=== PATIENT | female | born 2000 | race Caucasian/White ===

== ENCOUNTER 2024-08-11 21:00 | Outpatient (CLI) | payer OTHER, MEDICAID, SELFPAY ==
[2024-08-11 21:34] VITALS: BMI 38.8
[2024-08-11 22:01] LABS: Color, Urine Yellow (Yellow); Glucose, Dipstick Normal (Normal); Ketone-Dipstick Negative (Negative); Leukocyte Esterase-Dipstick 500 /ul (Negative); Nitrite-Dipstick Negative (Negative); Occult Blood-Urine 10 /ul (Negative); Protein-Dipstick 15 mg/dl (Negative); Specific Gravity, Urine 1.015 (1.002-1.030); Urine Bilirubin Dipstick Negative (Negative); Urine Clarity Sl. Cloudy (Clear); Urine Urobilinogen 1 mg/dl (Normal); Urine pH 6.5 (5.0 - 8.0)
[2024-08-11 22:18] LABS: ROM Internal Control Test YES-OK TO RESULT pt. (Internal QC); ROM Patient Test Negative (Negative)
[2024-08-11 22:19] LABS: Record Kit Lot#, ROM+ K3294
--- NOTE | 2024-08-13 08:03 | OB.TRI.NOTE ---
HPI - General General Date of Admission: 08/11/24 Date of Service: 08/11/24 Chief Complaint: vaginal discharge HPI Narrative SIRIA GRECO, is a 23 F who presents c/o possible srom, vaginal discharge. PFSH PFSH Home Medications ?Medication ?Instructions ?Recorded ?Last Taken ?Type aspirin 81 mg tablet,delayed 81 mg PO DAILY 08/11/24 08/10/24 History release ferrous sulfate 325 mg (65 mg 325 mg PO DAILY 08/11/24 Unknown History iron) tablet vit no.95-ferrous 1 tab PO DAILY 08/11/24 08/10/24 History fumarate 28 mg-folic acid 800 mcg tablet () Allergy/AdvReac Type Severity Reaction Status Date / Time No Known Allergies Allergy Verified 08/11/24 21:35 NST FHR Rate Baby A Baseline: 120 Variability:: Moderate Accelerations:: 15 x 15 Decelerations:: None NST Reactive:: Yes Uterine Activity:: irreg ctxs Assessment & Plan (1) Maternal obesity syndrome in third trimester: (2) High-risk in third trimester: (3) BMI 38.0-38.9,adult: (4) Vaginal discharge during in third trimester: PLAN: no evidence of SROM or PTL. F/u in office as scheduled or return prn (5) 36 weeks gestation of :
== END 2024-08-11 23:00 | disposition home or self-care (01) ==
LOC: WPOUT 21:08 → WP 21:08
PROVIDERS: Referring Provider Obstetrics & Gynecology; Visit Provider Obstetrics & Gynecology
DX: O99.891 Other specified diseases and conditions complicating pregnancy (principal); N89.8 Other specified noninflammatory disorders of vagina; Z3A.36 36 weeks gestation of pregnancy; O26.03 Excessive weight gain in pregnancy, third trimester
CPT/HCPCS: 59025; 59050; 81002; 84112; 87081; 87086; 87088; 87653; 99221; G0378

== ENCOUNTER 2024-09-04 05:20 | Inpatient (IN) | payer OTHER, MEDICAID, SELFPAY ==
[2024-09-04] VITALS (65 sets, daily range): BP systolic 86–135; BP diastolic 47–83; PULSE 74–140; RESP 14–16; TEMP 36.1–36.7; O2SAT 81–100; BMI 39.4
[2024-09-04 05:16] LABS: ROM Internal Control Test YES-OK TO RESULT pt. (Internal QC)
[2024-09-04 05:17] LABS: ROM Patient Test POSITIVE (Negative); Record Kit Lot#, ROM+ K3358
[2024-09-04] MEDS: Lactated Ringers 1,000 ML 50 ML IV (05:40)
[2024-09-04 05:59] LABS: Absolute Neutrophil Count 7.2 X10^3/uL (2.0-7.7); Basophil# 0.03 X10^3/uL; Basophil% 0.3 % (0-1); Eosinophil# 0.07 X10^3/uL; Eosinophils% 0.7 % (0-5); Hematocrit 30.7 % (37-47); Hemoglobin 10.2 g/dL (12.0-15.0); Lymphocyte % 19.8 % (19-41); Mean Corp Hgb Conc 33.2 g/dL (32-36); Mean Corpuscular Hgb 26.4 pg (27.0-32.0); Mean Corpuscular Volume 79.3 fL (81-99); Mean Platelet Vol. 9.8 fl (6.2-12.0); Monocyte# 0.69 X10^3/uL; Monocyte% 6.8 % (0-10); NRBC Flagged by Analyzer 0 % (0-5); Neutrophil # 7.22 X10^3/uL (2.7-7.7); Neutrophil % 71.7 % (47-70); Platelet Count 192 K/mm3 (150-450); RBC Distribution Width CV 13.6 % (11.6-14.6); RBC Distribution Width SD 38.9 fl (35.1-43.9); Red Blood Count 3.87 M/mm3 (4.2-5.4); White Blood Count 10.1 K/mm3 (4.4-11.0)
--- NOTE | 2024-09-04 06:14 | PCM.HP.OB ---
HPI - General General Date of Admission: 09/04/24 HPI Narrative SIRIA GRECO, is a 23 F who presents with spontanous rupture of membranes for clear fluid. Maternal Data Information OSCAR Calculator Estimated Delivery Date Method Current WG Current Estimate 09/08/24 Manual 39w 3d PFSH [facility] Medical History (Updated 09/04/24 @ 06:16 by Kayley Bansal CNM) Anxiety Asthma Home Medications ?Medication ?Instructions ?Recorded ?Last Taken ?Type aspirin 81 mg tablet,delayed 81 mg PO DAILY 08/11/24 09/03/24 History release ferrous sulfate 325 mg (65 mg 325 mg PO DAILY 08/11/24 09/03/24 History iron) tablet vit no.95-ferrous 1 tab PO DAILY 08/11/24 09/03/24 History fumarate 28 mg-folic acid 800 mcg tablet () Allergy/AdvReac Type Severity Reaction Status Date / Time No Known Allergies Allergy Verified 09/04/24 04:42 Social History Smoking Status: Never smoker History Elective abortions Hx Para 0 Spontaneous abortions Hx # Term Pregnancies Ectopic pregnancies Hx # Pregnancies Multiple births # of living children NST FHR Rate Baby A Baseline: 140 Variability:: Moderate Accelerations:: 15 x 15 Decelerations:: None NST Reactive:: Yes FHR Category:: Category I Uterine Activity:: TOCO reading every 2-3 minutes ROS Eyes Eyes: Denies blurry vision, change in vision or spots in vision ENT HEENT: Denies dizziness or headache(s) Cardiovascular Cardiovascular: Denies abdominal pain, chest pain or dyspnea Respiratory/Chest Respiratory/Chest: Denies cough, dyspnea, shortness of breath at rest or shortness of breath with exertion Gastrointestinal Gastrointestinal: Denies abdominal pain, diarrhea or vomiting Genitourinary Genitourinary: Denies change in urinary stream, difficulty urinating or dysuria Musculoskeletal Musculoskeletal: Reports none Integumentary Integumentary: Denies rash Neurologic Neurologic: Denies dizziness, headache(s), memory loss or weakness Psychiatric Psychiatric: Reports none Vital Signs Vital Signs Vital Signs: 09/04/24 04:45 09/04/24 04:45 09/04/24 04:45 Temperature Temperature Source Temporal Pulse Rate 96 Respiratory Rate Blood Pressure 124/74 H BP Systolic 124 BP Diastolic 74 09/04/24 04:45 09/04/24 04:45 Temperature 97.8 F Temperature Source Pulse Rate Respiratory Rate 14 Blood Pressure BP Systolic BP Diastolic Weight Weight: 216 lb Body Mass Index (BMI) 39.4 Physical Exam Const alert, oriented x3 and no apparent distress General Appearance: cooperative Orientation / Consciousness: awake Exam Limitations: no limitations HEENT normocephalic Head and Scalp: normal to inspection Eyes General Eye: normal appearance of both eyes Neck full ROM and no lymphadenopathy Lymph Lymphatic: no lymphadenopathy noted Chest inspection of chest normal Resp normal respiratory effort, normal air movement and clear to auscultation bilaterally Effort and Inspection: able to speak in complete sentences and symmetric chest movement Cardio regular rate and regular rhythm GI normal to inspection, nondistended, normoactive bowel sounds Manual OB Exam: presentation cephalic Back/Spine normal ROM Extremity full ROM and no calf tenderness Skin no rashes or lesions noted General Skin Exam: no breakdown Neuro oriented x3 and CN's II-XII intact bilaterally Psych mental status grossly normal and thought process normal Labs Labs Labs: Blood Type Pending Antibody Screen Pending Hct 30.7 % (37-47) L Hgb 10.2 g/dL (12.0-15.0) L Syphilis Total Ab Pending Assessment & Plan (1) Maternal obesity syndrome in third trimester: (2) High-risk in third trimester: (3) BMI 38.0-38.9,adult: (4) Spontaneous rupture of amniotic membranes: (5) 39 weeks gestation of : (6) Asthma: (7) Anxiety: PLAN: Plan ROM plus- POSITIVE CE 2cm Admit to labor and delivery GBS negative Epidural when indicated Pitocin at 2 mu/min and increase per policy Dr. Hsu updated and will be assuming management of patient
[2024-09-04 06:57] LABS: Syphilis Antibodies Nonreactive (Nonreactive)
[2024-09-04] MEDS: Oxytocin 15 Units/NS 250ml 15 UNITS/250 ML IV.SOLN 2 UNITS IV (07:39)
[2024-09-04] MEDS: Lactated Ringers 1,000 ML 999 ML IV (07:44)
[2024-09-04] MEDS: fentaNYL-bupivacaine (epidural) 100 ML BAG EPIDURAL ×2 (08:33→12:42)
[2024-09-04] MEDS: LACTATED RINGERS 500 ML 999 ML IV (12:37)
[2024-09-04] MEDS: Lactated Ringers 1,000 ML 200 ML IV (13:46)
[2024-09-04] MEDS: Amnioinfusion- 0.9% NS 1,000 ML IV.SOLN. 1000 ML INTRA-UTER (15:32)
--- NOTE | 2024-09-04 17:39 | EX.PCM.OBVAG ---
Maternal Data Information OSCAR Calculator Estimated Delivery Date Method Current Current Estimate 09/08/24 Manual 39w 3d Vaginal Delivery Maternal Presentation Maternal Presentation: Spontaneous Rupture of Membranes Type of Induction: Pitocin Vaginal Delivery Information Procedure Performed: Spontaneous Vaginal Delivery Surgeon/Practitioner: Wale Hsu Date of Procedure: 09/04/24 Pre-Procedure Diagnosis: SROM Post-Procedure Diagnosis: Same Type of anesthesia: Epidural Estimated Blood Loss: 200ml Findings Description of procedure: Called to room when patient C/C/+2. She was prepped & draped. Patient pushed well to deliver the head. head was gently guided to allow delivery of anterior and posterior shoulders. No excess traction placed on the head. The body delivered. 3VC clamped and cut in delayed fashion. Placenta delivered with gentle traction and good uterine tone obtained. Presentation: JOE Amniotic Membrane Rupture Type: Artificial Amniotic Fluid Description: Clear Placental Delivery Description: Expressed Placenta Disposition: [facility] Cord Vessel Description: 3 Vessels Cord Entanglement: Around neck x 1, loose Nuchal Cord Compression: Without compression A Gender: Female (1 minute): 8 (5 minute): 9 Delayed Cord Clamping: Yes Surveillance Operator impregnator and drier: No Post Vaginal Deli Medications given after delivery: IV Pitocin Episiotomy Description: None Laceration: None Complication Complications: No
[2024-09-04] MEDS: Oxytocin 15 Units/NS 250ml 15 UNITS/250 ML IV.SOLN 83 UNITS IV (17:56)
[2024-09-04] MEDS: 0.9% Saline Lock 10 ML Syringe IV (21:15)
[2024-09-05] VITALS (9 sets, daily range): BP systolic 115–119; BP diastolic 53–71; PULSE 79–108; RESP 15–18; TEMP 36.4–36.6; O2SAT 97–99
--- NOTE | 2024-09-05 04:55 | PCM.PN.OB ---
Subjective Subjective Doing well per patient and nursing staff. Ambulating and taking PO without difficulty. Voiding and passing flatus. Pain controlled. , services for assistance. Denies headache, visual changes, chest pain, shortness of breath, leg pain or increased bleeding. Lochia normal. Objective Data Objective Data Vital Signs: Vital Signs Temp Pulse Resp BP Pulse Ox O2 Del Method 97.8 F 97 15 119/69 98 Room Air 09/05/24 04:33 09/05/24 04:33 09/05/24 04:33 09/05/24 04:33 09/05/24 04:33 09/05/24 04:33 Oxygen Delivery Method Room Air Weight: 216 lb Body Mass Index (BMI) 39.4 Intake & Output: Intake and Output for Last 24 Hours 09/03/24 09/04/24 09/05/24 23:59 23:59 23:59 Intake Total 3727.44 / 3727.44 Output Total 1650 / 1650 600 / 600 Balance 2077.44 / 2077.44 -600 / -600 Lab / Micro Data 09/04/24 05:40 Labs: Laboratory Results - last 24 hr 09/04/24 04:50: Vag Amniotic Fld Detect POSITIVE H 09/04/24 05:40: WBC 10.1, RBC 3.87 L, Hgb 10.2 L, Hct 30.7 L, MCV 79.3 L, MCH 26.4 L, MCHC 33.2, RDW Std Deviation 38.9, RDW Coeff of Lianne 13.6, Plt Count 192, MPV 9.8, Immature Gran % (Auto) 0.700, Neut % (Auto) 71.7 H, Lymph % (Auto) 19.8, Villalba % (Auto) 6.8, Eos % (Auto) 0.7, Baso % (Auto) 0.3, Absolute Neuts (auto) 7.2, Absolute Lymphs (auto) 2.00, Nucleated RBC % 0, Syphilis Total Ab Nonreactive, Blood Type O POSITIVE, Antibody Screen NEGATIVE ROS Constitutional Constitutional: Reports systems reviewed and no addt'l complaints, except as documented; Denies headache(s) Eyes Eyes: Denies acute decrease in peripheral vision, blurry vision or change in vision ENT HEENT: Reports systems reviewed and no addt'l complaints, except as documented Cardiovascular Cardiovascular: Denies chest pain or dizziness Respiratory/Chest Respiratory/Chest: Denies cough, dyspnea, dyspnea on exertion, shortness of breath at rest or shortness of breath with exertion Gastrointestinal Gastrointestinal: Denies abdominal pain, diarrhea, nausea or vomiting Genitourinary Genitourinary: Denies abdominal discomfort Musculoskeletal Musculoskeletal: Denies limited range of motion Integumentary Integumentary: Reports systems reviewed and no addt'l complaints, except as documented Neurologic Neurologic: Reports systems reviewed and no addt'l complaints, except as documented Psychiatric Psychiatric: Reports systems reviewed and no addt'l complaints, except as documented Endocrine Endocrinology: Reports systems reviewed and no addt'l complaints, except as documented Hematologic/Lymphatic Hematologic/Lymphatic: Reports systems reviewed and no addt'l complaints, except as documented Allergic/Immunologic Allergic/Immunologic: Reports systems reviewed and no addt'l complaints, except as documented Physical Exam Const alert and oriented x3 General Appearance: cooperative Orientation / Consciousness: awake, oriented to person, oriented to place and oriented to time Exam Limitations: no limitations HEENT normocephalic Head and Scalp: normal to inspection, normocephalic and atraumatic Face and Sinus: normal facial exam Eyes General Eye: normal appearance of both eyes Neck full ROM Chest Chest: symmetrical chest wall rise Resp normal respiratory effort and normal air movement Auscultation: clear to auscultation bilaterally Cardio regular rate, regular rhythm, S1 normal heart sound, S2 normal heart sound, no murmurs, no rub, no gallops and no clicks GI normal to inspection, nondistended, normoactive bowel sounds and non-tender appearance of the vagina normal Bladder / Kidney Exam: no CVA tenderness Back/Spine normal ROM Extremity normal to inspection and full ROM Skin no rashes or lesions noted Neuro oriented x3 and moves all extremities Sensorium / Orientation: awake, alert and oriented to person Motor Exam: clonus absent Deep Tendon Reflexes: Rt Patellar (L4): 2+ and Lt Patellar (L4): 2+ Assessment & Plan (1) Vaginal delivery: (2) Lactating mother: PLAN: Plan 1) Routine care, PPD #1 2) Vitals signs stable 3) Pain controlled 4) , services PRN 5) D/C home 6) Follow up in 2 weeks and 6 weeks
--- NOTE | 2024-09-05 04:56 | DS.PCM_ITS ---
Providers Date of Admission: 09/04/24 Primary Care Physician: [facility] Phys Reason For Visit: VAGINAL DELIVERY Diagnosis Discharge Diagnosis (1) Vaginal delivery: Status: Acute Code(s): O80 - Encounter for full-term uncomplicated delivery (2) Lactating mother: Status: Acute Code(s): Z39.1 - Encounter for care and examination of lactating mother Plan 1) Routine care, PPD #1 2) Vitals signs stable 3) Pain controlled 4) , services PRN 5) D/C home 6) Follow up in 2 weeks and 6 weeks Medications at Discharge Home Medications vit no.95-ferrous fumarate 28 mg-folic acid 800 mcg tablet () 1 tab PO DAILY 08/11/24 acetaminophen 650 mg/20.3 mL oral solution 500 - 1,000 mg (15.6154 - 31.2308 mL) PO Q6H PRN PRN Pain 1-10 Or Fever #0 mL 09/05/24 ibuprofen 100 mg/5 mL oral suspension (Children's Ibuprofen) 600 mg (30 mL) PO Q6H PRN PRN Pain 1-10/Inflammation #0 mL 09/05/24 Hospital Course Summary of Care Provided Minutes Spent on Discharge: 15 Weight / BMI Weight Weight: 216 lb Body Mass Index (BMI) 39.4 ABG / Lab / Microbiology Data 09/04/24 05:40 Laboratory: Laboratory Results - last 24 hr 09/04/24 04:50: Vag Amniotic Fld Detect POSITIVE H 09/04/24 05:40: WBC 10.1, RBC 3.87 L, Hgb 10.2 L, Hct 30.7 L, MCV 79.3 L, MCH 26.4 L, MCHC 33.2, RDW Std Deviation 38.9, RDW Coeff of Lianne 13.6, Plt Count 192, MPV 9.8, Immature Gran % (Auto) 0.700, Neut % (Auto) 71.7 H, Lymph % (Auto) 19.8, [place] % (Auto) 6.8, Eos % (Auto) 0.7, Baso % (Auto) 0.3, Absolute Neuts (auto) 7.2, Absolute Lymphs (auto) 2.00, Nucleated RBC % 0, Syphilis Total Ab Nonreactive, Blood Type O POSITIVE, Antibody Screen NEGATIVE D/C Instructions Discharge Diet: No restrictions Discharge Activity: Return to Normal Activity, May Drive, May Shower and May Take a Tub Bath May resume sexual activity in: 6 weeks Weight Bearing Status: Full weight bearing Call your doctor if you observe: Fever of 101 or Higher, Inability to urinate, Using more than 1 pad per hour, Shortness of breath, Chest pain, Increased palpitations (irregular heartbeat), Calf discomfort and Uncontrolled pain DC O2, CPAP, BIPAP Needs Home O2 Discharge instructions: No Please Follow Up With: Mariela Garber CNM When: 2 week virtual visit and 6 week visit Meaningful Use Info Meaningful Use Meaningful Use Diagnoses (Choose all that apply): None applicable Ischemic Stroke Statin Dosing Therapy Reference: STATIN DOSE THERAPY REFERENCE: * Patients > 75 years receive moderate or high dose statin therapy. * Patients 75 years or YOUNGER should receive HIGH intensity statin dose unless contraindicated. You will be required to document reason for non-treatment if statin daily dose does not meet guidelines. HIGH DOSE STATIN THERAPY DAILY Atorvastatin > than or = to 40 mg Rosuvastatin > than or = to 20 mg Amlodipine + Atorvastatin > than or = to 2.5/40 mg Ezetimibe + Simvastatin 10/80 mg Simvastatin 80mg Discharge Plan Admission Admit Date/Time: 09/04/24 05:20 Primary Reason for Your Visit: Vaginal Delivery Attending Provider: Kayley Bansal Primary Care Provider: Care Physician,No Primary Discharge Orders/Prescriptions Prescriptions: New ibuprofen [Children's Ibuprofen] 100 mg/5 mL Suspension 600 mg PO Q6H PRN PRN (Reason: Pain 1-10/Inflammation) Qty: 0 0RF acetaminophen 650 mg/20.3 mL Solution 500 - 1,000 mg PO Q6H PRN PRN (Reason: Pain 1-10 Or Fever) Qty: 0 0RF Continued PNV cmb#95-ferrous fumarate-FA [] 28 mg iron- 800 mcg tablet 1 tab PO DAILY Discontinued aspirin 81 mg tablet,delayed release (DR/EC) 81 mg PO DAILY ferrous sulfate 325 mg (65 mg iron) tablet 325 mg PO DAILY Referrals / Follow Up: Kayley Bansal CNM [Med Staff - Adv Practice Prof] - Care Physician,No Primary [Primary Care Provider] - Disposition Disposition (needs filled in before D/C Order can be placed): Home, Self Care
[2024-09-05] MEDS: Benzocaine/Lanolin/Aloe Vera 85 GM Spray 1 SPRAY TOPICAL (07:34)
[2024-09-05] MEDS: Acetaminophen 650 MG/20 ML UDC PO (16:02)
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
== END 2024-09-05 18:31 | disposition home or self-care (01) | DRG 807 ==
LOC: WPOUT 05:21 → WP 05:21
PROVIDERS: Admitting Provider Advanced Practice Midwife; Referring Provider Advanced Practice Midwife; Visit Provider Advanced Practice Midwife
DX: O99.214 Obesity complicating childbirth (principal); Z37.0 Single live birth; O99.344 Other mental disorders complicating childbirth; F41.9 Anxiety disorder, unspecified; J45.909 Unspecified asthma, uncomplicated; O69.81X0 Labor and delivery complicated by cord around neck, without compression, not applicable or unspecified; Z79.82 Long term (current) use of aspirin; Z3A.39 39 weeks gestation of pregnancy; O99.52 Diseases of the respiratory system complicating childbirth
CPT/HCPCS: 59025; 59050; 84112; 85025; 86780; 86850; 86900; 86901; 99221; A4216; G0378